=== PATIENT | female | born 1980 | race Caucasian/White ===

== ENCOUNTER 2017-03-21 06:57 | Outpatient (CLI) | payer OTHER ==
[~2017-03-21] VITALS: Ht 160 cm; Wt 92.3 kg
[2017-03-21 08:42] LABS: AMNI OBC PASS; AMNISURE NEGATIVE (NEGATIVE)
== END 2017-03-21 10:05 | disposition home or self-care (01) ==
LOC: LDOP 06:57
PROVIDERS: ATTEND Obstetrics & Gynecology
DX: O42.92 Full-term premature rupture of membranes, unspecified as to length of time between rupture and onset of labor (principal); O26.893 Other specified pregnancy related conditions, third trimester; R10.9 Unspecified abdominal pain; Z3A.38 38 weeks gestation of pregnancy
CPT/HCPCS: 59025; 84112; 89060; 99201; G0463; Q0114

== ENCOUNTER 2017-04-01 10:36 | Inpatient (IN) | payer OTHER ==
[~2017-04-01] VITALS: Ht 160 cm; Wt 95.5 kg
[2017-04-09] MEDS ORDERED: PREN1TAB60 PO (08:14)
[2017-04-09] MEDS ORDERED: ALBU90AE INH (08:16)
[2017-04-09] MEDS ORDERED: OXYTOCIN 30U/ 0.9% NaCL 500ML 500 ML IV PRN (08:20)
[2017-04-09] MEDS ORDERED: OXYTOCIN 30U/ 0.9% NaCL 500ML 500 ML IV ONE (08:20)
[2017-04-09 08:28] VITALS: BP 111/77
[2017-04-09] MEDS ORDERED: FENTANYL PF 100 MCG/2ML IVPush PRN (08:30)
[2017-04-09] MEDS ORDERED: ONDANSETRON 2MG/ML, 2ML IVPush PRN (08:30)
[2017-04-09 08:50] LABS: BASOPHILS # (AUTO) 0.01 x10^3/uL (0-0.1); BASOPHILS % (AUTO) 0 % (0-1); EOSINOPHILS # (AUTO) 0.29 x10^3/uL (0-0.4); EOSINOPHILS % (AUTO) 2 % (1-7); LYMPHOCYTES % (AUTO) 22 % (22-44); MD NO; MEAN CORPUSCULAR HEMOGLOBIN 32.2 pg (27.0-34.8); MEAN CORPUSCULAR HGB CONC 33.9 g/dL (32.4-35.8); MEAN CORPUSCULAR VOLUME 94.9 fL (80-100); MEAN PLATELET VOLUME 8.9 fL (7.4-10.4); MONOCYTES # (AUTO) 0.74 x10^3/uL (0.2-0.8); MONOCYTES % (AUTO) 6 % (2-9); NEUTROPHILS # (AUTO) 8.45 x10^3/uL (1.8-6.8); NEUTROPHILS % (AUTO) 69 % (42-75); PLATELET COUNT 359 x10^3/uL (130-400); RED BLOOD COUNT 4.25 x10^6/uL (3.82-5.3); RED CELL DISTRIBUTION WIDTH 13.7 % (9.6-15.2)
[2017-04-09] MEDS ORDERED: OXYTOCIN 30U/ 0.9% NaCL 500ML 500 ML ONE ×2 (08:59→19:09)
[2017-04-09] MEDS ORDERED: VANCOMYCIN PMX 1GM/200ML 200 ML IVPB SCH (09:00)
[2017-04-09] MEDS: LACTATED RINGERS 1,000 ML IV SCH ×2 (09:04→13:20)
[2017-04-09] MEDS ORDERED: NEWBORN KIT ONE (10:23)
[2017-04-09] MEDS ORDERED: FENTANYL/BUPIV./NS/PF 250 ML EPIDCONT SCH (10:27)
[2017-04-09] MEDS ORDERED: LACTATED RINGERS 1,000 ML IV SCH (10:27)
[2017-04-09] MEDS ORDERED: EPHEDRINE 50 MG/ML, 1ML IVPush PRN (10:30)
[2017-04-09] MEDS ORDERED: LACTATED RINGERS 1,000 ML IVBOLUS PRN (10:30)
[2017-04-09] MEDS ORDERED: NALOXONE 0.4 MG/ML, 1ML IVPush PRN (10:30)
[2017-04-09] MEDS ORDERED: BUPIVACAINE/PF 0.25% ONE (11:24)
[2017-04-09] MEDS ORDERED: FENTANYL/BUPIV./NS/PF 250 ML EPIDCONT ONE (11:25)
[2017-04-09] MEDS ORDERED: BUPIVACAINE 0.25% ONE (11:27)
[2017-04-09] MEDS ORDERED: MISOPROSTOL 200 MCG TABLET PR PRN (18:00)
[2017-04-09] MEDS ORDERED: HYDROcodone/APAP 5/325 TABLET PO PRN ×2 (18:00)
[2017-04-09] MEDS ORDERED: ONDANSETRON 2MG/ML, 2ML IV PRN (18:00)
[2017-04-09] MEDS ORDERED: METHYLERGONOVINE 0.2 MG/ML IM PRN (18:00)
[2017-04-09] MEDS ORDERED: CARBOPROST TROMETHAMINE 250 MCG/ML, 1ML IM PRN (18:00)
[2017-04-09] MEDS ORDERED: CALCIUM CARBONATE 500 MG TAB.CHEW PO PRN (18:00)
[2017-04-09] MEDS ORDERED: IBUPROFEN 600 MG TABLET ONE (19:09)
[2017-04-09] MEDS: IBUPROFEN 600 MG TABLET PO PRN (19:15)
[2017-04-09] MEDS: OXYTOCIN 30U/ 0.9% NaCL 500ML 500 ML IV SCH (19:16)
[2017-04-09 20:05] VITALS: BP 95/60
[2017-04-10 00:10] VITALS: BP 122/63
[2017-04-10] MEDS: IBUPROFEN 600 MG TABLET PO PRN ×3 (00:13→20:52)
[2017-04-10] MEDS: OXYTOCIN 30U/ 0.9% NaCL 500ML 500 ML IV SCH ×2 (03:47→13:47)
[2017-04-10 03:53] VITALS: BP 115/60
[2017-04-10 05:36] LABS: MEAN CORPUSCULAR HEMOGLOBIN 32.5 pg (27.0-34.8); MEAN CORPUSCULAR HGB CONC 34.5 g/dL (32.4-35.8); MEAN CORPUSCULAR VOLUME 94.2 fL (80-100); MEAN PLATELET VOLUME 9.1 fL (7.4-10.4); PLATELET COUNT 295 x10^3/uL (130-400); RED BLOOD COUNT 3.73 x10^6/uL (3.82-5.3); RED CELL DISTRIBUTION WIDTH 13.7 % (9.6-15.2)
[2017-04-10 06:22] LABS: MD SCAN
[2017-04-10 06:23] LABS: BASOPHILS # (AUTO) 0.05 x10^3/uL (0-0.1); BASOPHILS % (AUTO) 0 % (0-1); EOSINOPHILS # (AUTO) 0.13 x10^3/uL (0-0.4); EOSINOPHILS % (AUTO) 1 % (1-7); LYMPHOCYTES # (AUTO) 3.25 x10^3/uL (1-3.4); LYMPHOCYTES % (AUTO) 18 % (22-44); MONOCYTES % (AUTO) 9 % (2-9); NEUTROPHILS % (AUTO) 72 % (42-75)
[2017-04-10] MEDS: DOCUSATE 100 MG CAPSULE PO PRN ×2 (08:10→20:52)
[2017-04-10] MEDS: PRENATAL VIT/IRON/FA 1 EACH TABLET PO SCH (08:10)
[2017-04-10] MEDS ORDERED: FENTANYL/BUPIV./NS/PF 250 ML EPIDCONT ONE (13:00)
[2017-04-10 19:00] VITALS: BP 107/65
[2017-04-11] MEDS: IBUPROFEN 600 MG TABLET PO PRN ×2 (02:58→09:27)
[2017-04-11 07:00] VITALS: BP 111/71
[2017-04-11] MEDS: PRENATAL VIT/IRON/FA 1 EACH TABLET PO SCH (07:29)
[2017-04-11] MEDS: DOCUSATE 100 MG CAPSULE PO PRN (07:29)
[2017-04-11] MEDS ORDERED: IBUP200T49 PO (11:25)
[2017-04-11] MEDS ORDERED: HYDR-3240 PO (11:26)
== END 2017-04-11 13:12 | disposition home or self-care (01) | DRG 775 ==
LOC: LDIP 04-09 08:04 → 2NW 04-09 19:58
PROVIDERS: ADMIT Obstetrics & Gynecology; ATTEND Obstetrics & Gynecology
PROC: 10E0XZZ Delivery of Products of Conception, External Approach (ICD-10-PCS; principal; 2017-04-09)
PROC: 10907ZC Drainage of Amniotic Fluid, Therapeutic from Products of Conception, Via Natural or Artificial Opening (ICD-10-PCS; 2017-04-09)
PROC: 0HQ9XZZ Repair Perineum Skin, External Approach (ICD-10-PCS; 2017-04-09)
PROC: 3E0P3VZ Introduction of Hormone into Female Reproductive, Percutaneous Approach (ICD-10-PCS; 2017-04-09)
PROC: 3E0R3BZ Introduction of Anesthetic Agent into Spinal Canal, Percutaneous Approach (ICD-10-PCS; 2017-04-09)
PROC: 00HU33Z Insertion of Infusion Device into Spinal Canal, Percutaneous Approach (ICD-10-PCS; 2017-04-09)
DX: O48.0 Post-term pregnancy (principal); O12.04 Gestational edema, complicating childbirth; Z37.0 Single live birth; O99.824 Streptococcus B carrier state complicating childbirth; Z3A.41 41 weeks gestation of pregnancy; O70.0 First degree perineal laceration during delivery
CPT/HCPCS: 36415; 85025; 86850; 86900; J3370; J3490; J2590; J3010; J7120

== ENCOUNTER 2019-06-09 20:33 | Outpatient (CLI) | payer OTHER ==
[~2019-06-09] VITALS: Ht 162.6 cm; Wt 96.0 kg
[~2019-06-09 20:33] MED LIST: ALBU90AE INH; HYDR-3240 PO; IBUP200T49 PO; PREN1TAB60 PO
== END 2019-06-09 22:55 | disposition home or self-care (01) ==
LOC: LDOP 20:33
PROVIDERS: ATTEND Obstetrics & Gynecology
DX: O26.893 Other specified pregnancy related conditions, third trimester (principal); R10.9 Unspecified abdominal pain; Z3A.38 38 weeks gestation of pregnancy
CPT/HCPCS: 59025; 99211; G0463

== ENCOUNTER 2019-06-15 19:03 | Inpatient (IN) | payer OTHER ==
[~2019-06-15] VITALS: Ht 162.6 cm; Wt 95.0 kg
[2019-06-15 19:13] VITALS: BP 132/68
[2019-06-15] MEDS ORDERED: OXYTOCIN 30U/ 0.9% NaCL 500ML 500 ML IV PRN (20:01)
[2019-06-15] MEDS ORDERED: OXYTOCIN 30U/ 0.9% NaCL 500ML 500 ML IV ONE (20:01)
[2019-06-15] MEDS ORDERED: D5%-LACTATED RINGERS 1,000 ML IV SCH (20:01)
[2019-06-15] MEDS ORDERED: LACTATED RINGERS 1,000 ML IV SCH (20:01)
[2019-06-15] MEDS ORDERED: ONDANSETRON 2MG/ML, 2ML IVPush PRN (20:30)
[2019-06-15] MEDS ORDERED: PHARMACOKINETIC MONITORING MC PRN (20:30)
[2019-06-15] MEDS ORDERED: TERBUTALINE 1 MG/ML, 1ML SQ PRN (20:30)
[2019-06-15] MEDS ORDERED: METOCLOPRAMIDE 5 MG/ML, 2ML IVPush PRN (20:30)
[2019-06-15] MEDS ORDERED: PHARMACOKINETIC CONSULTATION MC ONE (20:30)
[2019-06-15] MEDS ORDERED: TERBUTALINE 1 MG/ML, 1ML IVPush PRN (20:30)
[2019-06-15] MEDS ORDERED: CALCIUM CARBONATE 500 MG TAB.CHEW PO PRN (20:30)
[2019-06-15] MEDS ORDERED: SODIUM CITRATE/CITRIC ACID 30 ML UDC PO PRN (20:30)
[2019-06-15] MEDS ORDERED: FENTANYL PF 100 MCG/2ML IV PRN (20:30)
[2019-06-15] MEDS ORDERED: FENTANYL PF 100 MCG/2ML IVPush PRN (20:30)
[2019-06-15] MEDS ORDERED: VANCOMYCIN 1,900 MG in SODIUM CHLORIDE 0.9% 250 ML IV ONE (20:30)
[2019-06-15] MEDS ORDERED: VANCOMYCIN PER PHARMACY MC PRN (20:30)
[2019-06-15 20:33] LABS: BASOPHILS # (AUTO) 0.08 x10^3/uL (0-0.1); BASOPHILS % (AUTO) 1 % (0-1); EOSINOPHILS # (AUTO) 0.09 x10^3/uL (0-0.4); EOSINOPHILS % (AUTO) 1 % (1-7); LYMPHOCYTES % (AUTO) 21 % (22-44); MD NO; MEAN CORPUSCULAR HEMOGLOBIN 31.6 pg (27.0-34.8); MEAN CORPUSCULAR VOLUME 92.9 fL (80-100); MEAN PLATELET VOLUME 9.3 fL (7.4-10.4); MONOCYTES # (AUTO) 0.67 x10^3/uL (0.2-0.8); MONOCYTES % (AUTO) 5 % (2-9); NEUTROPHILS # (AUTO) 9.26 x10^3/uL (1.8-6.8); NEUTROPHILS % (AUTO) 72 % (42-75); PLATELET COUNT 392 x10^3/uL (130-400); RED BLOOD COUNT 4.13 x10^6/uL (3.82-5.3); RED CELL DISTRIBUTION WIDTH 13.8 % (9.6-15.2)
[2019-06-15 20:48] LABS: CREATININE 0.78 mg/dL (0.55-1.02)
[2019-06-15] MEDS ORDERED: DIPHENHYDRAMINE 50 MG/ML, 1ML ONE (23:17)
[2019-06-15] MEDS ORDERED: DIPHENHYDRAMINE 50 MG/ML, 1ML IVPush ONE (23:20)
[2019-06-15 23:24] VITALS: BP 111/67
[2019-06-16] MEDS ORDERED: CLINDAMYCIN PMX 900MG/50ML 50 ML IVPB SCH (00:30)
[2019-06-16] MEDS ORDERED: CLINDAMYCIN PMX 900MG/50ML 50 ML ONE (01:35)
[2019-06-16] MEDS ORDERED: OXYTOCIN 30U/ 0.9% NaCL 500ML 500 ML ONE (01:35)
[2019-06-16] MEDS ORDERED: MISOPROSTOL 200 MCG TABLET ONE (01:35)
[2019-06-16] MEDS ORDERED: LIDOCAINE 1%, 20ML ONE (01:35)
[2019-06-16] MEDS ORDERED: NEWBORN KIT ONE (01:39)
[2019-06-16] MEDS ORDERED: VANCOMYCIN 1,900 MG in SODIUM CHLORIDE 0.9% 250 ML IV SCH (05:30)
[2019-06-16] MEDS ORDERED: AMPICILLIN 2 GM in SODIUM CHLORIDE 0.9% 100 ML IVPB STA (06:20)
[2019-06-16] MEDS ORDERED: AMPICILLIN 1 GM in SODIUM CHLORIDE 0.9% 50 ML IVPB SCH (06:30)
[2019-06-16] MEDS ORDERED: FENTANYL/BUPIV./NS/PF 250 ML EPIDCONT SCH (08:44)
[2019-06-16] MEDS ORDERED: FENTANYL PF 500 MCG, BUPIVACAINE/PF 0.5%, 30ML 62.5 ML in SODIUM CHLORIDE 0.9% 177.5 ML EPIDCONT SCH (09:30)
[2019-06-16] MEDS: OXYTOCIN 30U/ 0.9% NaCL 500ML 500 ML IV SCH ×2 (09:47→19:47)
[2019-06-16] MEDS ORDERED: IBUPROFEN 600 MG TABLET ONE (09:49)
[2019-06-16] MEDS: IBUPROFEN 600 MG TABLET PO PRN ×3 (09:53→22:02)
[2019-06-16] MEDS ORDERED: SIMETHICONE 80 MG CHEW TAB PO PRN (10:00)
[2019-06-16] MEDS ORDERED: METHYLERGONOVINE 0.2 MG/ML IM PRN (10:00)
[2019-06-16] MEDS ORDERED: MISOPROSTOL 200 MCG TABLET PR PRN (10:00)
[2019-06-16] MEDS ORDERED: ONDANSETRON 2MG/ML, 2ML IV PRN (10:00)
[2019-06-16] MEDS ORDERED: CALCIUM CARBONATE 500 MG TAB.CHEW PO PRN (10:00)
[2019-06-16] MEDS ORDERED: CARBOPROST TROMETHAMINE 250 MCG/ML, 1ML IM PRN (10:00)
[2019-06-16] MEDS ORDERED: HYDROcodone/APAP 5/325 TABLET PO PRN ×2 (10:00)
[2019-06-16 12:40] VITALS: BP 105/62
[2019-06-16] MEDS ORDERED: AMPICILLIN 1 GM in SODIUM CHLORIDE 0.9% 100 ML IVPB SCH (14:30)
[2019-06-16 16:44] VITALS: BP 100/66
[2019-06-16 18:49] LABS: MEAN CORPUSCULAR HEMOGLOBIN 31.1 pg (27.0-34.8); MEAN CORPUSCULAR HGB CONC 33.4 g/dL (32.4-35.8); MEAN CORPUSCULAR VOLUME 93.3 fL (80-100); MEAN PLATELET VOLUME 9.2 fL (7.4-10.4); PLATELET COUNT 356 x10^3/uL (130-400); RED BLOOD COUNT 3.95 x10^6/uL (3.82-5.3)
[2019-06-16 19:00] LABS: BASOPHILS # (AUTO) 0.07 x10^3/uL (0-0.1); BASOPHILS % (AUTO) 0 % (0-1); EOSINOPHILS # (AUTO) 0.08 x10^3/uL (0-0.4); EOSINOPHILS % (AUTO) 1 % (1-7); LYMPHOCYTES # (AUTO) 2.97 x10^3/uL (1-3.4); LYMPHOCYTES % (AUTO) 19 % (22-44); MD NO; MONOCYTES % (AUTO) 7 % (2-9); NEUTROPHILS # (AUTO) 11.52 x10^3/uL (1.8-6.8); NEUTROPHILS % (AUTO) 73 % (42-75)
[2019-06-16 19:10] VITALS: BP 103/70
[2019-06-16] MEDS: DOCUSATE 100 MG CAPSULE PO PRN (22:02)
[2019-06-17 00:05] VITALS: BP 110/71
[2019-06-17 05:00] VITALS: BP 94/61
[2019-06-17] MEDS: IBUPROFEN 600 MG TABLET PO PRN ×4 (05:04→22:44)
[2019-06-17] MEDS: OXYTOCIN 30U/ 0.9% NaCL 500ML 500 ML IV SCH ×2 (05:47→15:47)
[2019-06-17 07:43] VITALS: BP 97/64
[2019-06-17] MEDS: PRENATAL VIT/IRON/FA 1 EACH TABLET PO SCH (09:00)
[2019-06-17 19:30] VITALS: BP 103/61
[2019-06-17] MEDS: DOCUSATE 100 MG CAPSULE PO PRN (22:44)
[2019-06-18] MEDS: OXYTOCIN 30U/ 0.9% NaCL 500ML 500 ML IV SCH (01:47)
[2019-06-18] MEDS: IBUPROFEN 600 MG TABLET PO PRN ×2 (04:47→11:05)
[2019-06-18 07:20] VITALS: BP 110/73
[2019-06-18] MEDS: PRENATAL VIT/IRON/FA 1 EACH TABLET PO SCH (07:58)
[2019-06-18] MEDS: DOCUSATE 100 MG CAPSULE PO PRN (07:59)
== END 2019-06-18 13:00 | disposition home or self-care (01) | DRG 807 ==
LOC: LDOP 19:03 → LDIP 20:19 → 2NW 06-16 11:11
PROVIDERS: ADMIT Obstetrics & Gynecology; ATTEND Obstetrics & Gynecology
PROC: 10907ZC Drainage of Amniotic Fluid, Therapeutic from Products of Conception, Via Natural or Artificial Opening (ICD-10-PCS; principal; 2019-06-16)
PROC: 10E0XZZ Delivery of Products of Conception, External Approach (ICD-10-PCS; 2019-06-16)
DX: O69.81X0 Labor and delivery complicated by cord around neck, without compression, not applicable or unspecified (principal); Z37.0 Single live birth; J45.909 Unspecified asthma, uncomplicated; O99.52 Diseases of the respiratory system complicating childbirth; O99.824 Streptococcus B carrier state complicating childbirth; Z3A.39 39 weeks gestation of pregnancy
CPT/HCPCS: 36415; 82565; 82803; 85025; 86592; 86850; 86900; G0378; J0290; J3370; J1200; J2590; J7050; J7120